=== PATIENT | male | born 1985 | race Caucasian/White ===

== ENCOUNTER 2023-05-29 09:51 | Outpatient (OUT) | payer OTHER, SELFPAY ==
--- NOTE | 2023-05-29 10:01 | XR_ITS ---
The [address] [address] Patient Name: ABEL LAL MRN: [id number] date: 1985 Sex: M Assigned Patient Location: [facility] Current Patient Location: [facility] Accession/Order Number: [id number] Exam Date: 05/29/2023 10:25 Report Date: 05/29/2023 10:42 At the request of: ELEONORA NEWTON Procedure: XR chest 2V EXAM: XR chest 2V HISTORY: Preop exam COMPARISON: None. TECHNIQUE: PA and lateral views of the chest. FINDINGS: The cardiomediastinal silhouette is normal. No focal consolidation is identified. There is no pneumothorax. No pleural effusion is noted. The osseous structures are intact. XR/XR chest 2V IMPRESSION: No acute cardiopulmonary process. Electronically authenticated by: CHALINO SHAFFER Date: 05/29/2023 10:42
--- NOTE | 2023-05-29 10:36 | P.GSHP_ITS ---
History of Present Illness History of Present Illness Chief complaint: right biceps tear Narrative: Patient presents for preadmission testing. Please see HPI from Dr. Schultz dated 05/28/2023. Review of Systems ROS Narrative REVIEW OF SYSTEMS: Negative except as stated in HPI, ten or more systems reviewed. Constitutional: No fever , chills, weakness ENT: No sore throat or epistaxis Cardiovascular: No edema, chest pain, palpitations, or activity intolerance Respiratory: No shortness of breath, cough, or wheezing Gastrointestinal: No abdominal pain, constipation, diarrhea, or vomiting Genitourinary: No dysuria or hematuria Neurological: No numbness, tingling, weakness, or headache Psychiatric: No mood changes PFSH PFSH Medical History (Updated 05/29/23 @ 10:12 by Julissa Ramirez NP) Surgical History (Updated 05/29/23 @ 10:12 by Julissa Ramirez NP) Family History (Updated 05/29/23 @ 10:12 by Julissa Ramirez NP) Other Family history of heart disease Family history of stroke Social History (Updated 05/29/23 @ 10:10 by Julissa Ramirez NP) Within the past year, how often did you have a drink containing alcohol: 2-3 times a week Do you use any of these nicotine containing products: vaping products Non-prescribed substance use: denies use Previous occupational history: cable tv installer Highest level of school completed/degree received: high school graduate Meds Home Medications and Allergies Allergies Allergy/AdvReac Type Severity Reaction Status Date / Time Sulfa (Sulfonamide Allergy Severe waters Verified 05/29/23 10:28 Antibiotics) rupali syndrome Exam Narrative Exam Narrative: Constitutional: Awake, alert, comfortable, well-appearing, nontoxic, interactive, vital signs as charted Head: Normocephalic, atraumatic Neck: Supple, normal appearance, normal range of motion, no meningeal signs, no lymphadenopathy Respiratory: No respiratory distress, breath sounds clear Cardiovascular: Regular rate and rhythm, strong and regular heart tones Skin: No rashes or induration, no lesions, only visible skin inspected Neuro: No neurological deficits, normal sensation Psychiatric: Oriented ?3, normal affect Assessment and Plan Assessment and Plan (1) Biceps tendon rupture: Plan Right distal biceps tendon repair, possible allograft scheduled with Dr. Schultz 05/30/2023.
== END 2023-05-29 09:52 | disposition home or self-care (01) ==
LOC: PST 09:55
PROVIDERS: Visit Provider Orthopaedic Surgery
DX: Z01.810 Encounter for preprocedural cardiovascular examination (principal); S46.211A Strain of muscle, fascia and tendon of other parts of biceps, right arm, initial encounter
CPT/HCPCS: 71046; G0463

== ENCOUNTER 2023-05-30 12:41 | Day surgery (SDC) | payer OTHER, SELFPAY ==
[2023-05-29 10:22] VITALS: BP 133/82; PULSE 58; RESP 16; TEMP 36.6; O2SAT 100; BMI 32.1
[2023-05-30] VITALS (20 sets, daily range): BP systolic 115–169; BP diastolic 74–107; PULSE 65–100; RESP 16–22; TEMP 36.4–36.6; O2SAT 17–99; BMI 32.1
[2023-05-30] MEDS: LACTATED RINGER'S SOLUTION 1,000 ML 50 ML IV ×2 (13:32→14:45)
[2023-05-30] MEDS: CEFAZOLIN SODIUM/DEXTROSE,ISO 2 GM/50 ML PIGGYBACK IV (13:51)
[2023-05-30] MEDS: HYDROMORPHONE HCL 0.5 MG/0.5 ML SYRINGE IV ×2 (15:34→16:15)
[2023-05-30] MEDS: OXYCODONE HCL/ACETAMINOPHEN 5MG/325MG 1 TAB PO (17:06)
--- NOTE | 2023-05-30 17:44 | P.ORPRC_ITS ---
Procedure Note Date of procedure: 05/30/23 Pre-op diagnosis: Right distal biceps tendon tear Post-op diagnosis: same as pre-op Procedure: Operation performed: Right distal biceps tendon repair Operative procedure: After informed consent was obtained the patient brought to the operating room where general anesthetic was administered. A well-padded proximal right arm tourniquet was placed. The right arm was prepped and draped in the usual sterile fashion. The arm was elevated, exsanguinated, and the tourniquet was inflated to 200 mmHg. A 4 cm incision was made 3 cm distal to the antecubital flexion crease. Blunt dissection was carried down through soft tissue in order to preserve the lateral antebrachial cutaneous nerve. Biceps tendon was next identified and found to be scarred within the soft tissue just proximal to the antecubital flexion crease. Blunt dissection was carried out to mobilize the biceps tendon and muscle. The distal end of tendon was sharply removed to get to more healthy tendon. An Arthrex fiber loop was then placed for 2 cm in a running locking fashion. 2 suture ends were placed through an Arthrex biceps button.. Tendon sized to 7 mm. Dissection was next carried down to the radial tuberosity bluntly. This was cleared of soft tissue. The guidepin was placed in a bicortical fashion for the biceps button. A unicortical 8 mm tunnel was created over the top of this. Bony debris was irrigated and removed. The biceps button was then passed to the far cortex and flipped. Sutures were pulled to introduce the tendon into the tunnel that was created. This required 45 degrees of elbow flexion. Sutures were then tied. Repair was augmented with a 7 x 10 mm bio composite tenodesis screw. Suture ends were tied over the top. Solid repair was achieved. Tourniquet was deflated. Wound was irrigated. Wound was closed with absorbable suture in layers. Steri-Strips and a sterile dressing were placed. A well- padded posterior fiberglass splint was placed. Patient was awakened and brought to the recovery room in stable condition. In the recovery room patient was found to have full finger range of motion. Anesthesia: General-LMA Surgeon: Kamaljit Schultz Estimated blood loss (mL): 5 Pathology: none sent Condition: stable Disposition: PACU
--- NOTE | 2023-05-30 18:09 | PC.NURSE ---
patient has complaints of [address] Rincon notified. Dr. Rincon notified Dr. Schultz. Dr. Schultz talked to patient about nerve block in pre-op. Dr. Schultz talked to patient in phase one and decided to do nerve block for post operative pain control. Dr. Rincon and I performed a time out with the wristband, chart, surgery schedule and signed consents all matching the information the patient was able to provide.
== END 2023-05-30 17:25 | disposition home or self-care (01) ==
PROVIDERS: Visit Provider Orthopaedic Surgery
PROC: (CPT 24342; principal; 2023-05-30 13:30)
DX: S46.211A Strain of muscle, fascia and tendon of other parts of biceps, right arm, initial encounter (principal); F17.290 Nicotine dependence, other tobacco product, uncomplicated; X58.XXXA Exposure to other specified factors, initial encounter
CPT/HCPCS: 24342; 64415; 76942; C1713; J1170; J2704